=== PATIENT | female | born 1975 | race Two or more races ===

== ENCOUNTER 2017-01-01 10:37 | Emergency (ER) | payer SELFPAY ==
--- NOTE | 2017-01-01 11:14 | EDPHY ---
H & P Time Seen by Provider: 01/01/17 10:39 HPI/ROS: Chief complaint. Anxiety attack HPI. 41-year-old female with history of anxiety has had increased stress and anxiety since last night. relates increased stressors around the house the last several days. She was having some trouble breathing with tingling of her lips and hands this morning so took the patient to clinic where she seemed to be having some breathing difficulty and EMS was called. EMS felt that this patient was hyperventilating and she received Valium IV. relates no fever or cough. He relates similar symptoms previously. ROS Constitutional. no fever/chills, no weakness Eyes. no problems with vision ENT. no sore throat, no nasal drainage Cardiovascular. no chest pain Respiratory. Shortness of breath Abdominal. no abdominal pain, no nausea/vomiting, no diarrhea . no problems urinating MS. no calf pain/swelling, no neck/back pain, no joint pain Skin. no rash Lymph. no swollen glands Neuro. Tingling to mouth and hands Past Medical/Surgical History: Anxiety Social History: , daily smoker, no alcohol Physical Exam: General Appearance: With anxious well-developed female now slightly sleepy after Valium. Vital signs are stable Eyes: Pupils equal and round no pallor or injection. ENT, Mouth: Mucous membranes are moist. Respiratory: There are no retractions, lungs are clear to auscultation. Cardiovascular: Regular rate and rhythm. Gastrointestinal: Abdomen is soft and nontender, no masses, bowel sounds normal. Neurological: Awake and alert, sensory and motor exams grossly normal. Skin: Warm and dry, no rashes. Musculoskeletal: Neck is supple nontender. Extremities symmetrical, full range of motion. Psychiatric: Anxious and somewhat hyperventilating Constitutional: Initial Vital Signs Temperature (C) 36.5 C 01/01/17 10:54 Heart Rate 86 01/01/17 10:54 Respiratory Rate 18 01/01/17 10:54 Blood Pressure 102/80 01/01/17 10:54 O2 Sat (%) 100 01/01/17 10:54 O2 Delivery Mode Room Air Allergies/Adverse Reactions: No Known Allergies Allergy (Unverified 01/01/17 10:52) Home Medications: Medication Instructions Recorded FLUoxetine 01/01/17 Medical Decision Making - Diagnostics EKG Interpretation: EKG interpreted by me shows normal sinus rhythm with normal interval and axis. QRS is normal there is no significant ST elevation or depression. No arrhythmia. The rate is 59 Imaging Results: Imaging Impressions Chest X-Ray 01/01/17 11:36 Impression: Negative portable chest. One-view chest x-ray interpreted by me is normal Procedures: IV normal saline, monitor ED Course/Re-evaluation: Re-evaluation 12:40 p.m.--patient feeling much better. No symptoms. The patient, her , and I discussed imaging lab EKG studies. We discussed treatment plan including criteria for return importance of follow-up and further evaluation. She expresses understanding and agreement Differential Diagnosis: I considered asthma, pneumonia, anxiety, acute coronary syndrome. This appears to be acute anxiety episode - Data Points Laboratory Results: Laboratory Results 01/01/17 11:39 01/01/17 11:15 01/01/17 01/01/17 01/01/17 11:39 11:15 11:15 WBC 7.69 10^3/uL 10^3/uL (3.80-9.50) RBC 5.54 10^6/uL H 10^6/uL (4.18-5.33) Hgb 16.3 g/dL g/dL (12.6-16.3) Hct 46.8 % % (38.0-47.0) MCV 84.5 fL fL (81.5-99.8) MCH 29.4 pg pg (27.9-34.1) MCHC 34.8 g/dL g/dL (32.4-36.7) RDW 13.1 % % (11.5-15.2) Plt Count 268 10^3/uL 10^3/uL (150-400) MPV 12.3 fL H fL (8.7-11.7) Neut % (Auto) 56.0 % % (39.3-74.2) Lymph % (Auto) 34.5 % % (15.0-45.0) Cannon % (Auto) 7.5 % % (4.5-13.0) Eos % (Auto) 1.3 % % (0.6-7.6) Baso % (Auto) 0.4 % % (0.3-1.7) Nucleat RBC Rel Count 0.0 % % (0.0-0.2) Absolute Neuts (auto) 4.31 10^3/uL 10^3/uL (1.70-6.50) Absolute Lymphs (auto) 2.65 10^3/uL 10^3/uL (1.00-3.00) Absolute Monos (auto) 0.58 10^3/uL 10^3/uL (0.30-0.80) Absolute Eos (auto) 0.10 10^3/uL 10^3/uL (0.03-0.40) Absolute Basos (auto) 0.03 10^3/uL 10^3/uL (0.02-0.10) Absolute Nucleated RBC 0.00 10^3/uL 10^3/uL (0-0.01) Immature Gran % 0.3 % % (0.0-1.1) Immature Gran # 0.02 10^3/uL 10^3/uL (0.00-0.10) D-Dimer < 0.27 ug/mLFEU ug/mLFEU (0.00-0.50) Sodium Potassium Chloride Carbon Dioxide Anion Gap BUN Creatinine Estimated GFR Glucose Calcium Phosphorus Troponin I Beta HCG, Qual NEGATIVE 01/01/17 11:15 WBC RBC Hgb Hct MCV MCH MCHC RDW Plt Count MPV Neut % (Auto) Lymph % (Auto) Cannon % (Auto) Eos % (Auto) Baso % (Auto) Nucleat RBC Rel Count Absolute Neuts (auto) Absolute Lymphs (auto) Absolute Monos (auto) Absolute Eos (auto) Absolute Basos (auto) Absolute Nucleated RBC Immature Gran % Immature Gran # D-Dimer Sodium 139 mEq/L mEq/L (134-144) Potassium 4.7 mEq/L mEq/L (3.5-5.2) Chloride 106 mEq/L mEq/L (97-110) Carbon Dioxide 19 mEq/l L mEq/l (22-31) Anion Gap 14 mEq/L mEq/L (8-16) BUN 16 mg/dL mg/dL (7-23) Creatinine 0.9 mg/dL mg/dL (0.6-1.0) Estimated GFR > 60 Glucose 74 mg/dL mg/dL (70-100) Calcium 10.7 mg/dL H mg/dL (8.5-10.4) Phosphorus 2.4 mg/dL L mg/dL (2.5-4.5) Troponin I < 0.012 ng/mL ng/mL (0-0.034) Beta HCG, Qual Departure - Departure Disposition: Home, Routine, Self-Care Clinical Impression: Anxiety Condition: Good Instructions: Panic Attack (ED) Additional Instructions: Continue regular medication. Return for worsening symptoms. Re-evaluation by your regular physician in the next 2-3 days for possible change of medication for better anxiety control Referrals: Patient,NotPresent [Primary Care Provider] - As per Instructions Print Language: Thai
[2017-01-01 11:41] LABS: % IMMATURE GRANULYOCYTES 0.3 % (0.0-1.1); ABSOLUTE IMMATURE GRANULOCYTES 0.02 10^3/uL (0.00-0.10); ADD DIFF? NO; ADD MORPH? NO; ADD SCAN? NO; ATYPICAL LYMPHOCYTE FLAG 10 (0-99); FRAGMENT RBC FLAG 0 (0-99); HEMATOCRIT 46.8 % (38.0-47.0); HEMOGLOBIN 16.3 g/dL (12.6-16.3); LEFT SHIFT FLG 0 (0-99); LIPEMIA HEMOLYSIS FLAG 90 (0-99); MEAN CELL HEMOGLOBIN 29.4 pg (27.9-34.1); MEAN CELL HEMOGLOBIN CONCENTR. 34.8 g/dL (32.4-36.7); MEAN CELL VOLUME 84.5 fL (81.5-99.8); MEAN PLATELET VOLUME 12.3 fL (8.7-11.7); PLATELET CLUMPS FLAG 0 (0-99); PLATELET COUNT 268 10^3/uL (150-400); RED BLOOD CELL COUNT 5.54 10^6/uL (4.18-5.33); RED CELL DISTRIBUTION WIDTH 13.1 % (11.5-15.2)
[2017-01-01 11:50] LABS: ANION GAP 14 mEq/L (8-16); CALCIUM 10.7 mg/dL (8.5-10.4); CARBON DIOXIDE 19 mEq/l (22-31); CHLORIDE 106 mEq/L (97-110); CREATININE 0.9 mg/dL (0.6-1.0); GLOMERULAR FILTRATION RATE > 60; GLUCOSE 74 mg/dL (70-100); POTASSIUM 4.7 mEq/L (3.5-5.2); SODIUM 139 mEq/L (134-144)
--- NOTE | 2017-01-01 11:54 | CPEKG ---
Heart Rate: 59 RR Interval: 1017 P-R Interval: 128 QRSD Interval: 80 QT Interval: 404 QTC Interval: 401 P [place]: 63 QRS [place]: 23 T Wave [place]: 14 EKG Severity - NORMAL ECG - EKG Impression: SINUS RHYTHM Electronically Signed By: Paul Ortiz 01-Jan-2017 15:49:32
[2017-01-01 12:03] LABS: TROPONIN I < 0.012 ng/mL (0-0.034)
[2017-01-01 13:06] VITALS: BP 130/78; PULSE 80; RESP 14; TEMP 98.4; O2SAT 94
== END 2017-01-01 13:04 | disposition home or self-care (01) ==
DX: F41.9 Anxiety disorder, unspecified (principal); F17.200 Nicotine dependence, unspecified, uncomplicated